=== PATIENT | female | born 2000 | race American Indian/Alaskan Native ===

== ENCOUNTER 2020-07-16 15:20 | Emergency (ER) | payer OTHER, BC ==
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
[2020-07-16 17:59] VITALS: BP 125/83
== END 2020-07-16 17:10 | disposition home or self-care (01) ==
LOC: ED 15:20
DX: S29.012A Strain of muscle and tendon of back wall of thorax, initial encounter (principal); Z79.899 Other long term (current) drug therapy; V49.19XA Passenger injured in collision with other motor vehicles in nontraffic accident, initial encounter; Y93.89 Activity, other specified; Y92.488 Other paved roadways as the place of occurrence of the external cause; Y99.8 Other external cause status
CPT/HCPCS: 99282